=== PATIENT | female | born 2000 | race African-American/Black ===

== ENCOUNTER 2019-11-08 08:41 | Emergency (ER) | payer OTHER, SELFPAY ==
[2019-11-08 08:58] VITALS: BP 120/81; PULSE 114; RESP 16; TEMP 36.7; O2SAT 99
--- NOTE | 2019-11-08 09:04 | ED.SKABFB ---
HPI - Skin/Abscess/Foreign Bdy General Chief complaint: Wound/Laceration Stated complaint: laceration on genital area Time Seen by Provider: 11/08/19 08:59 Source: patient and RN notes reviewed Mode of arrival: ambulatory Limitations: no limitations History of Present Illness HPI narrative: Patient presents today complaining of a possible laceration to her genitalia that was sustained 11 days ago while shaving. Risks irritation and pain to this area when she urinates. Denies any known history of sexually transmitted infections. She has 1 sexual partner for the past 2 years. They occasionally use condoms. States she does get tested for STDs routinely. She has been clean with peroxide and applying Vaseline and Neosporin without relief. MD complaint: laceration Related Data Allergies Allergy/AdvReac Type Severity Reaction Status Date / Time No Known Allergies Allergy Verified 11/08/19 09:04 Review of Systems Review of Systems: Narrative: CONSTITUTIONAL: Denies body aches, fever, chills, or sweats. EYES: Denies visual changes, redness, or discharge. ENT: Denies rhinorrhea, congestion, sore throat, or otalgia. CARDIOVASCULAR: Denies chest pain, palpitations, or edema. RESPIRATORY: Denies cough or dyspnea. GASTROINTESTINAL: Denies abdominal pain, nausea, vomiting, or diarrhea. GENITOURINARY: Denies dysuria or hematuria. SKIN: Denies rash, itching. + Wound to vulva MUSCULOSKELETAL: Denies back pain, joint pain, or myalgia. NEUROLOGIC: Denies headache, numbness, tingling, or weakness. PSYCH: Denies depression or anxiety. [facility] Past Medical History Medical History (Updated 11/08/19 @ 09:11 by Tila Soto, SILVA, ) History of reproductive disorder Cyst removed from vagina Surgical History Surgical History (Updated 07/01/19 @ 09:43 by SILVA Gonzalez) History of back surgery As a baby Social History Social History Smoking status: Never smoker Alcohol intake: never Gender identity (if verbalized by the patient): Female Comments At time of signature, I have reviewed and agree with nursing past medical, surgical, social and family history unless otherwise noted. Please see nursing chart for further information. There is no relevant family history pertinent to the presenting complaint Exam Narrative: Exam Narrative: GENERAL: Well-appearing, well-nourished, and in no acute distress. HEAD: Normocephalic, atraumatic. EYES: EOMI. No redness or drainage. ENT: Mucous membranes pink and moist. NECK: Normal AROM. CHEST: No respiratory distress. : 1x2cm skin ulceration with purulent drainage and mild surrounding erythema to right posterior vulva, just adjacent to the perineum. Chaperoned by Starr Mcguire RN EXTREMITIES: Normal range of motion. No edema. SKIN: Warm, dry, no rash. Capillary refill normal. Normal skin turgor. NEURO: No focal deficits. Alert and oriented x3. Gait steady. PSYCH: Normal affect. No signs of depression or anxiety. Course Vital Signs Vital signs: Vital Signs Temperature 98.1 F 11/08/19 08:58 Pulse Rate 114 H 11/08/19 08:58 Respiratory Rate 16 11/08/19 08:58 Blood Pressure 120/81 11/08/19 08:58 Pulse Oximetry 99 11/08/19 08:58 Temperature 98.1 F 11/08/19 08:58 Pulse Rate 114 H 11/08/19 08:58 Respiratory Rate 16 11/08/19 08:58 Blood Pressure 120/81 11/08/19 08:58 Pulse Oximetry 99 11/08/19 08:58 Reviewed. Pt has been instructed to follow up with her PCP regarding her elevated blood pressure today. MDM - Skin/Abscess/Foreign Bdy Differential Diagnosis Differential diagnosis: Likely abscess of skin or subcutaneous tissue, herpes zoster, cellulitis, impetigo and contact dermatitis Critical Care Time Critical Care Time Critical Care Time: No Discharge Plan Discharge Clinical Impression: Open wnd of vulva Qualifiers: Encounter type: initial encounter Qualified Code(s): S3
== END 2019-11-08 09:15 | disposition home or self-care (01) ==
PROVIDERS: Emergency Provider Nurse Practitioner; PCP Family Medicine
DX: S31.40XA Unspecified open wound of vagina and vulva, initial encounter (principal); W26.8XXA Contact with other sharp object(s), not elsewhere classified, initial encounter; R03.0 Elevated blood-pressure reading, without diagnosis of hypertension
CPT/HCPCS: 99213; G0463

== ENCOUNTER 2020-07-05 12:40 | Outpatient (NON) | payer OTHER, SELFPAY ==
[2020-07-05 23:32] LABS: SARS-CoV-2 RNA PCR Negative
== END 2020-07-05 12:41 ==
LOC: ANHCOVIDDT 12:41
PROVIDERS: Visit Provider Nurse Practitioner Family
DX: R68.89 Other general symptoms and signs (principal); Z20.822 Contact with and (suspected) exposure to COVID-19
CPT/HCPCS: C9803; U0003

== ENCOUNTER 2022-11-12 16:31 | Emergency (ER) | payer BC, SELFPAY ==
--- NOTE | ~2022-11-12 | US_ITS ---
EXAMINATION: US pelvic complete w TV DATE: 11/12/2022 19:24 INDICATION: 4 months of pelvic pain TECHNIQUE: Multiple transabdominal and endovaginal sonographic images of the pelvis were obtained. COMPARISON: None. FINDINGS: The uterus measures 6.7 x 2.9 x 3.4 cm. The endometrial complex measures 5-6 mm in thickness. The ri ght ovary measures 3.1 x 2.6 x 2.1 cm. The left ovary measures 3.8 x 3.1 x 2.6 cm. Vascular flow with arterial waveforms identified in both ovaries on color Doppler. Multiple subcentimeter anechoic cyst s/follicles at the periphery of both ovaries which could be seen in the setting of polycystic ovarian disease. There is a small amount of anechoic likely physiologic free fluid in the pelvis. IMPRESSION: 1. Multiple subcentimeter anechoic cysts/follicles at the periphery of both ovaries which could be se en in the setting of polycystic ovarian disease. Otherwise unremarkable pelvic ultrasound. Reviewed, dictated and finalized at location A. IMPRESSION: 1. Multiple subcentimeter anechoic cysts/follicles at the periphery of both ova saundra which could be seen in the setting of polycystic ovarian disease. Otherwis e unremarkable pelvic ultrasound.
[2022-11-12 16:51] VITALS: BP 104/70; PULSE 110; RESP 16; TEMP 36.9; O2SAT 98
[2022-11-12 17:36] LABS: Appearance Urine Clear (Clear); Bilirubin Urine Negative (Negative); Blood Urine Negative (Negative); Color Urine Yellow (Yellow); Glucose Urine UA Negative (Negative); Ketones Urine 1+ mg/dL (Negative); Leukocyte Esterase Ur Negative LEU/UL (Negative); Nitrate Urine Negative (Negative); Protein Urine Negative (Negative); Specific Grav Ur 1.023 (1.001-1.035); pH Urine 8.5 (5.0-9.0)
[2022-11-12 17:43] LABS: Add Urine Microscopic? NO
[2022-11-12 18:51] LABS: Basophils Percent Auto 0.2 % (0.2-1.2); Eosinophils Percent Auto 0.4 % (0-4.4); Hematocrit 41.6 % (37.0-47.0); Hemoglobin 14.1 g/dL (12.0-15.0); Immature Granulocyte Absolute 0.01 K/mm3 (0.00-0.031); Immature Granulocyte Percent A 0.2 % (0-0.5); Lymphocytes Absolute Auto 0.41 K/mm3 (0.9-3.2); Lymphocytes Percent Auto 7.3 % (18.3-44.2); Mean Corpuscular HGB Conc 33.9 g/dl (32-36); Mean Corpuscular Hemoglobin 30.8 pg (26-34); Mean Corpuscular Volume 90.8 fl (80-100); Mean Platelet Volume 9.5 fl (7.4-10.4); Monocytes Absolute Auto 0.4 K/mm3 (0.1-0.6); Monocytes Percent Auto 7.3 % (2.6-8.5); Neutrophils Absolute Auto 4.8 K/mm3 (1.3-6.7); Neutrophils Percent Auto 84.6 % (45.5-73.1); Platelet Count Result 311 k/mm3 (150-375); Red Blood Count 4.58 M/mm3 (4.2-5.4); Red Cell Distribution Width 12.2 % (11.5-14.5); White Blood Count 5.6 K/mm3 (4.5-10.0)
[2022-11-12 18:58] LABS: Alanine Aminotransferase 22 U/L (6-35); Albumin Level 4.3 g/dL (3.5-5.1); Alkaline Phosphatase 59 U/L (38-126); Anion Gap 7 mmol/L (8-16); Aspartate Amino Transferase 30 U/L (14-36); Bilirubin,Total 0.7 mg/dL (0.2-1.3); Blood Urea Nitrogen 10 mg/dL (7-17); Calcium 8.6 mg/dL (8.4-10.2); Carbon Dioxide 29 mmol/L (22-30); Chloride 102 mmol/L (98-107); Estimated CRCL calculation 97 ml/min; Estimated Glomerular Filt Rate > 60; Glucose 86 mg/dL (65-110); Potassium 3.8 mmol/L (3.4-5.0); Sodium 138 mmol/L (137-145)
--- NOTE | 2022-11-12 20:31 | ED.PREGNANCY ---
HPI - General Chief complaint: RETAIL OPERATIONS MANAGER <KIRSTEN Luna Last Filed: 11/13/22 02:23> Stated complaint: Pelvic Pain <KIRSTEN Luna Last Filed: 11/13/22 02:23> Time Seen by Provider: 11/12/22 18:28 <KIRSTEN Luna Last Filed: 11/13/22 02:23> Source: patient <KIRSTEN Luna Last Filed: 11/13/22 02:23> Mode of arrival: ambulatory <KIRSTEN Luna Last Filed: 11/13/22 02:23> Limitations: no limitations <KIRSTEN Luna Last Filed: 11/13/22 02:23> History of Present Illness HPI Narrative: Patient is a 22 y/o female who presents to the ED with c/o pelvic pain and N/V. Patient reports having intermittent pain in her pelvic region for the last 4 months. She has not tried anything for the pain over the last 4 months. 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 Patient developed nausea and vomiting today and was referred to the ED instead for further evaluation. Patient denies any current pain, states she just feels nauseous. She denies any vaginal bleeding and reports that she has not had a cycle since September 16. Patient typically does have normal cycles. She is on a MACY. Patient denies any pain elsewhere in her abdomen, fevers, diarrhea, constipation. <KIRSTEN Luna Last Filed: 11/13/22 02:23> Related Data Allergies/Adverse reactions: Allergies Allergy/AdvReac Type Severity Reaction Status Date / Time No Known Allergies Allergy Verified 11/19/22 09:18 <KIRSTEN Luna Last Filed: 11/13/22 02:23> Review of Systems Review of Systems: CONSTITUTIONAL: Denies fever, chills, or sweats. CARDIOVASCULAR: Denies chest pain. RESPIRATORY: Denies dyspnea. GASTROINTESTINAL: See HPI. GENITOURINARY: See HPI. <KIRSTEN Luna Last Filed: 11/13/22 02:23> All systems reviewed & are unremarkable except as noted in HPI and below <Angelita Tapia PA-C - Last Filed: 11/13/22 02:23> [facility] Past Medical History Medical History: Medical History Encounter for screening for respiratory tuberculosis History of reproductive disorder Cyst removed from vagina <KIRSTEN Luna Last Filed: 11/13/22 02:23> Surgical History Surgical History: Surgical History History of back surgery As a baby <KIRSTEN Luna Last Filed: 11/13/22 02:23> Social History Social History: Social History Smoking status: Never smoker Alcohol intake: never Gender identity (if verbalized by the patient): Female <KIRSTEN Luna Last Filed: 11/13/22 02:23> Exam Narrative: GENERAL: Well appearing, well-nourished, non-toxic, in no acute distress. HEAD: Normocephalic, atraumatic. NECK: Supple. No adenopathy, no masses. RESPIRATORY: Airway patent, respirations nonlabored. Clear to auscultation bilaterally, no rales, rhonchi, wheezing. CARDIOVASCULAR: Regular rate and rhythm without murmurs, rubs, or gallops. Radial pulses 2+ and equal bilaterally. ABDOMINAL: Soft, minimal bilateral lower pelvic tenderness to palpation, no tenderness throughout remainder of abdomen, nondistended, no hepatosplenomegaly. Normoactive BS. MUSCULOSKELETAL: Moves all extremities. Strength/ROM intact without gross deformities. SKIN: Warm, dry, normal color. No rashes. NEURO: A&O X3. Speech clear. Cranial nerves II-XII grossly intact. Steady gait. No ataxic movements. PSYCHIATRIC: Appropriate mood and affect. Normal interaction. <KIRSTEN Luna Last Filed: 11/13/22 02:23> Course LINING MAKER HAND/PA Physician Supervision This is a was performed by both a physician and an APC. I performed all aspects of the MDM as documented w/ the following additions: 22-year
[2022-11-12] MEDS: SODIUM CHLORIDE 0.9% IV 1,000 ML 999 ML IV CONT (20:44)
[2022-11-12] MEDS: ONDANSETRON INJ 4 MG/2 ML VIAL IV PUSH (20:44)
[2022-11-12 22:07] VITALS: BP 106/70; PULSE 84; RESP 16; O2SAT 100
== END 2022-11-12 22:07 | disposition home or self-care (01) ==
PROVIDERS: Emergency Medicine; Emergency Provider Physician Assistant; PCP Family Medicine
DX: E28.2 Polycystic ovarian syndrome (principal)
CPT/HCPCS: 36415; 76830; 76856; 80053; 81003; 81025; 85025; 96361; 96374; 99284; J2405; J7030

== ENCOUNTER 2022-12-23 00:49 | Day surgery (SDC) | payer BC, SELFPAY ==
[2022-12-16 09:45] VITALS: BMI 30.3
[2022-12-23 07:08] VITALS: BP 133/96; PULSE 103; RESP 16; TEMP 36.4; O2SAT 100
[2022-12-23] MEDS: LACTATED RINGERS 1,000 ML 150 ML IV CONT (07:10)
--- NOTE | 2022-12-23 08:02 | WPDANESEPPF ---
Anes - Initial Pre Proc Eval Procedure: Operation Date: 12/23/22 08:30 Proposed Procedures p Colonoscopy - Erwin Wylie MD Date/Time: 12/23/22 08:02 Surgeon: Erwin Wylie MD Pre Op Diagnosis: diarrhea,pelvis perineal pain Patient Data Age: 22 Gender: F Height: 1.6 m Weight: 78.9 kg Last Vital Signs Temp 97.5 F L 12/23/22 07:08 Pulse 103 H 12/23/22 07:08 Resp 16 12/23/22 07:08 BP 133/96 H 12/23/22 07:08 Pulse Ox 100 12/23/22 07:08 O2 Del Method Room Air 12/23/22 07:08 Allergies Allergy/AdvReac Type Severity Reaction Status Date / Time No Known Allergies Allergy Verified 12/23/22 07:07 Home Medications Medication Instructions Recorded Confirmed Type norgestimate 0.18 mg/0.215 mg/0.25 1 tablet PO DAILY #28 tabs 11/09/19 12/23/22 Rx mg-ethinyl estradiol 25 mcg tablet ([id number]) emollient combination no.35 See Rx Instructions .Route 08/09/21 12/23/22 Rx (PruMyx topical cream) .COMPLEX #140 grams triamcinolone acetonide 0.1 % 1 applic topical BID #80 grams 08/09/21 12/23/22 Rx topical cream lidocaine 2 %-hydrocortisone 2 % 1 applic RECTAL BID #1 ea 11/19/22 12/23/22 Rx (7 gram) rectal kit cream and wipes Patient hx anesthesia problems: none Family hx anesthesia problems: none Results Review: All pre-operative results and documents have been reviewed as part of the pre-operative evaluation. [facility] Past Medical History Medical History (Updated 11/20/22 @ 10:33 by VANDANA Polo) Encounter for screening for respiratory tuberculosis History of reproductive disorder Cyst removed from vagina Surgical History Surgical History History of back surgery As a baby Social History Social History Smoking status: Never smoker Alcohol intake: never Substance use: never Substance use type: does not use Living arrangements: with family Gender identity (if verbalized by the patient): Female Spiritual care concerns: No Anes - Eval Final PreProcedure Day of Procedure 12/23/22 08:02 Patient weight: obese Heart: regular rate and rhythm Lungs: clear to auscultation Airway: Mallampati scale class II Neurological: alert and oriented Last oral intake: >/= 8 hours ASA classification: II Emergent: no Anesthetic plan: proceed Anesthesia type and monitoring: general GIVS and standard monitoring Results Review: All pre-operative results and documents have been reviewed as part of the pre-operative evaluation. Informed Consent: The patient's anesthetic plan and its attendant risks and benefits were discussed with the patient/family/POA. Questions were solicited and answers provided to the satisfaction of the patient/family/POA.
--- NOTE | 2022-12-23 08:12 | PM.HPGS ---
History of Present Illness History of Present Illness Consent: Risks, benefits, and alternatives have been discussed and questions answered. Patient agrees to proceed with procedure. Chief complaint: diarrhea,pelvis perineal pain Narrative: Mayra Ballesteros is a 22 year old female here for first colonoscopy, had intermittent blood in stools and sometimes diarrhea Review of Systems Constitutional: Constitutional: Denies headache(s) and Denies weakness Eyes: Eyes: Denies blurry vision ENT: Reports Normal hearing present, Denies headache(s) and Denies neck pain Cardiovascular: Cardiovascular: Denies chest pain and Denies dyspnea Respiratory: Respiratory: Denies dyspnea Gastrointestinal: Gastrointestinal: Reports no additional gastrointestinal complaints Genitourinary: Genitourinary: Denies dysuria Musculoskeletal: Musculoskeletal: Denies neck pain Integumentary/Breasts: Skin/Breast: Denies dry skin Neurologic: Reports Normal hearing present, Denies headache(s) and Denies weakness Psychiatric: Psychiatric: Denies anxiety Endocrine: Endocrine: Denies change in body appearance Hematologic/Lymphatic: Hematologic/Lymphatic: Denies easy bleeding Allergic/Immunologic: Allergic/Immunologic: Denies urticaria PMF Past Medical History Medical History (Updated 12/23/22 @ 08:13 by Erwin Wylie MD) Blood in stool Diarrhea Encounter for screening for respiratory tuberculosis History of reproductive disorder Cyst removed from vagina Surgical History Surgical History History of back surgery As a baby Social History Social History Smoking status: Never smoker Alcohol intake: never Substance use: never Substance use type: does not use Living arrangements: with family Gender identity (if verbalized by the patient): Female Spiritual care concerns: No Meds Home Medications and Allergies Home Medications Medication Instructions Recorded Confirmed Type norgestimate 0.18 mg/0.215 mg/0.25 1 tablet PO DAILY #28 tabs 11/09/19 12/23/22 Rx mg-ethinyl estradiol 25 mcg tablet ([id number]) emollient combination no.35 See Rx Instructions .Route 08/09/21 12/23/22 Rx (PruMyx topical cream) .COMPLEX #140 grams triamcinolone acetonide 0.1 % 1 applic topical BID #80 grams 08/09/21 12/23/22 Rx topical cream lidocaine 2 %-hydrocortisone 2 % 1 applic RECTAL BID #1 ea 11/19/22 12/23/22 Rx (7 gram) rectal kit cream and wipes Allergies Allergy/AdvReac Type Severity Reaction Status Date / Time No Known Allergies Allergy Verified 12/23/22 07:07 Vital Signs Vital Signs - 24 hr 12/23/22 07:08 Temperature 97.5 F L Pulse Rate 103 H Respiratory Rate 16 Blood Pressure 133/96 H Pulse Oximetry 100 Oxygen Delivery Room Air Exam Const: General: comfortable and no acute distress HENMT: Face/Nose/Sinus: Normal nares present Eyes: General: appearance normal, both eyes and all related structures Neck: Neck: no JVD Resp: Auscultation: clear to auscultation bilaterally Cardio: Rate: regular rate Rhythm: regular rhythm GI: Inspection: non-distended GI Palp: Yes Soft to palpation Skin: General skin exam: normal color Neuro: General: gait normal Speech: normal speech Extrem: General: normal to inspection Psych: Mental Status: mental status grossly normal Assessment and Plan Assessment and plan (1) Blood in stool: Code(s): K92.1 - Melena Status: Acute Assessment and Plan: colonoscopy (2) Diarrhea: Code(s): R19.7 - Diarrhea, unspecified Status: Acute Assessment and Plan: consider random colon bx
[2022-12-23 08:27] VITALS: BP 100/59; PULSE 90; RESP 19; O2SAT 100
[2022-12-23 08:37] VITALS: BP 110/67; PULSE 81; RESP 18; O2SAT 98
[2022-12-23 08:47] VITALS: BP 112/81; PULSE 70; RESP 17; O2SAT 100
== END 2022-12-23 08:55 | disposition home or self-care (01) ==
PROVIDERS: PCP Family Medicine; Visit Provider Internal Medicine Gastroenterology
PROC: 0DJD8ZZ Inspection of Lower Intestinal Tract, Via Natural or Artificial Opening Endoscopic (ICD-10-PCS; CPT 45378; principal; 2022-12-23 08:30)
DX: R19.7 Diarrhea, unspecified (principal); K92.1 Melena; K64.8 Other hemorrhoids; E66.9 Obesity, unspecified; Z68.30 Body mass index [BMI] 30.0-30.9, adult
CPT/HCPCS: 45380; 88305; J2704; J7120